=== PATIENT | female | born 2005 | race Caucasian/White ===

== ENCOUNTER 2025-04-14 18:20 | Emergency (ER) | payer OTHER, SELFPAY ==
[~2025-04-14 18:20] MED LIST: Iopamidol 300 61% 100 ML VIAL FS ONE
[2025-04-14 20:02] LABS: #Basophils 0.03 10x3/uL (0.0-0.2); #Eosinophils 0.09 10x3/uL (0.0-0.5); #Monocytes 0.62 10x3/uL (0.0-1.1); #Neutrophils 5.64 10x3/uL (1.5-8.4); %Basophils 0.4 % (0.0-2.0); %Eosinophils 1.1 % (0.0-6.0); %Lymphocytes 20.5 % (18.0-47.0); %Monocytes 7.7 % (0.0-10.0); %Neutrophils 69.9 % (40.0-75.0); Hematocrit 28.6 % (34.9-44.5); Hemoglobin 8.3 g/dL (12.0-15.5); Mean Corpuscular Hemoglobin 21.3 pg (27.0-33.0); Mean Corpuscular Volume 73.5 fL (81.6-98.3); Platelet Count 309 10x3/uL (150-450); Red Blood Cell (RBC) Count 3.89 10x6/uL (3.90-5.03); White Blood Cell (WBC) Count 8.06 10x3/uL (3.5-10.5)
[2025-04-14 20:05] LABS: BHCG - Serum Negative (NEGATIVE); Pregs Control Background? CLEAR/WHITE (CLR/WHITE); Pregs Control Bar Appear? YES (CONTROL BAR)
[2025-04-14 20:10] LABS: Glucose, Urine (Dipstick) Normal (Negative); Leukocyte Negative (Negative); Protein, Urine (Dipstick) 30 mg/dl (Neg-Trace); Specific Gravity, Urine 1.015 (1.005-1.030)
[2025-04-14 20:14] LABS: ALT (SGPT) 15 U/L (Less than 34); AST (SGOT) 20 U/L (11-34); Albumin 4.5 g/dL (3.1-4.5); Alkaline Phosphatase 57 U/L (40-110); Anion Gap 14 mmol/L (10-20); BUN (Urea Nitrogen) 10 mg/dL (7.0-18.7); Bilirubin, Total 0.7 mg/dL (0.3-1.2); Calc. Creatinine Clearance 0 mL/min (70-130); Calcium 9.4 mg/dL (7.8-10.44); Carbon Dioxide 21 mmol/L (22-29); Chloride 107 mmol/L (98-107); Globulin 3.6 g/dL (2.4-3.5); Glucose 87 mg/dL (70-105); Lipase 30 U/L (8-78); Potassium 3.7 mmol/L (3.5-5.1); Sodium 138 mmol/L (136-145)
[2025-04-14 20:20] LABS: CAUTI Indications for Culture Alt mental st,lethar; WBC/HPF 0-3 HPF (0-3)
[2025-04-14 20:21] LABS: Bacteria/HPF 2+ HPF (None Seen); Mucous/LPF 2+ LPF (<2+)
[2025-04-14 20:22] LABS: RBC/HPF 21-50 HPF (0-3)
[2025-04-14 20:23] LABS: Urine Culture Reflex No No
[2025-04-14 21:30] LABS: Microcytosis MODERATE=15-30 cells (100X) (0-5/hpf)
[2025-04-14 21:32] LABS: Platelet Adequacy Comment Appears Adequate
== END 2025-04-14 21:21 | disposition home or self-care (01) ==
LOC: CSHERS 18:20
DX: R55 Syncope and collapse (principal); D64.9 Anemia, unspecified; F17.290 Nicotine dependence, other tobacco product, uncomplicated
CPT/HCPCS: 36415; 74177; 80053; 81001; 83690; 84703; 85025; 93005; 96360